=== PATIENT | male | born 1975 | race Two or more races ===

== ENCOUNTER 2022-09-10 21:32 | Emergency (ER) | payer SELFPAY ==
[~2022-09-10] VITALS: Ht 180.3 cm; Wt 106.5 kg
[2022-09-11] MEDS ORDERED: IBUP-2029 MT (02:27)
[2022-09-11] MEDS ORDERED: MUPI1OIN4 TP (02:27)
[2022-09-11 02:35] VITALS: BP 167/114
== END 2022-09-11 02:37 | disposition home or self-care (01) ==
LOC: ER 21:46
DX: D17.9 Benign lipomatous neoplasm, unspecified (principal)
CPT/HCPCS: 99282

== ENCOUNTER 2022-10-19 13:09 | Emergency (ER) | payer MEDICAID ==
[~2022-10-19] VITALS: Ht 170.2 cm; Wt 80.0 kg
[~2022-10-19 13:09] MED LIST: IBUP-2029 MT; MUPI1OIN4 TP
[2022-10-19 13:20] VITALS: BP 156/99; TEMP 98.6
[2022-10-19] MEDS ORDERED: ALBUTEROL (0.083%) 2.5MG/3ML NEB HHN ONE (17:00)
[2022-10-19] MEDS ORDERED: ALBU6.7H3 INH (17:30)
[2022-10-19] MEDS ORDERED: P50 MT (17:30)
[2022-10-19 17:40] VITALS: PULSE 92; RESP 20; O2SAT 92
== END 2022-10-19 19:01 | disposition home or self-care (01) ==
LOC: ER 13:09
DX: J45.909 Unspecified asthma, uncomplicated (principal)
CPT/HCPCS: 94640; 99283; Z7610 ×3; 94664

== ENCOUNTER 2022-12-21 23:22 | Emergency (ER) | payer MEDICAID ==
[~2022-12-21] VITALS: Ht 170.2 cm; Wt 92.5 kg
[~2022-12-21 23:22] MED LIST changes: +ALBU6.7H3 INH; +P50 MT
[2022-12-21 23:31] VITALS: BP 153/98
[2022-12-21] MEDS ORDERED: PREDNISONE 20MG TABLET PO STA (23:34)
[2022-12-21] MEDS ORDERED: IPRATROPIUM BROMIDE (0.02%) 0.5MG/2.5ML NEB HHN STA (23:34)
[2022-12-21] MEDS ORDERED: ALBUTEROL (0.083%) 2.5MG/3ML NEB HHN STA (23:34)
[2022-12-22] MEDS ORDERED: IPRATROPIUM BROMIDE (0.02%) 0.5MG/2.5ML NEB HHN NR (01:00)
[2022-12-22] MEDS ORDERED: ALBUTEROL (0.083%) 2.5MG/3ML NEB HHN NR (01:00)
[2022-12-22 01:06] VITALS: PULSE 97; RESP 18; O2SAT 97
[2022-12-22] MEDS ORDERED: ALBU6.7H3 INH (01:15)
[2022-12-22] MEDS ORDERED: P20 MT (01:15)
[2022-12-22 01:41] VITALS: PULSE 97; RESP 18; TEMP 97.8
== END 2022-12-22 01:43 | disposition home or self-care (01) ==
LOC: ER 12-22 00:53
DX: J45.901 Unspecified asthma with (acute) exacerbation (principal)
CPT/HCPCS: 94640; 99283; Z7610 ×3; J7512

== ENCOUNTER 2023-04-17 14:03 | Emergency (ER) | payer MEDICAID ==
[~2023-04-17] VITALS: Ht 177.8 cm; Wt 91.0 kg
[~2023-04-17 14:03] MED LIST changes: +P20 MT
[2023-04-17 14:16] VITALS: BP 165/100; PULSE 102; RESP 16; TEMP 98.7; O2SAT 97
[2023-04-17] MEDS ORDERED: SULF1TAB48 MT (20:21)
[2023-04-17] MEDS ORDERED: IBUP-1525 MT (20:21)
[2023-04-17] MEDS ORDERED: TOPUD MT (20:21)
[2023-04-17] MEDS ORDERED: LIDOCAINE HCL 1% 20ML VIAL (Pyxis) INJ INFIL ONE (20:30)
[2023-04-17] MEDS ORDERED: TETANUS, DIPHTHERIA, PERTUSSIS VAC/PF 0.5ML (>10YR OLD) IM ONE (20:30)
== END 2023-04-17 21:13 | disposition home or self-care (01) ==
LOC: ER 14:03
DX: L03.113 Cellulitis of right upper limb (principal)
CPT/HCPCS: 73130; 90715; 10060; 90471; 99283; Z7610 ×6

== ENCOUNTER 2023-04-21 01:47 | Emergency (ER) | payer MEDICAID ==
[~2023-04-21] VITALS: Ht 177.8 cm; Wt 95.0 kg
[~2023-04-21 01:47] MED LIST changes: +IBUP-1525 MT; +SULF1TAB48 MT; +TOPUD MT
[2023-04-21 02:29] VITALS: BP 124/84; PULSE 116; RESP 14; TEMP 99.1; O2SAT 100
[2023-04-21] MEDS ORDERED: ALBU6.7H15 INH (03:20)
== END 2023-04-21 04:25 | disposition home or self-care (01) ==
LOC: ER 02:15
DX: L03.011 Cellulitis of right finger (principal); J45.909 Unspecified asthma, uncomplicated; Z76.0 Encounter for issue of repeat prescription; Z79.899 Other long term (current) drug therapy
CPT/HCPCS: 99283

== ENCOUNTER 2024-11-21 06:00 | Emergency (ER) | payer SELFPAY ==
[~2024-11-21] VITALS: Ht 175.3 cm; Wt 91.0 kg
[~2024-11-21 06:00] MED LIST changes: +ALBU6.7H15 INH
[2024-11-21] MEDS: PREDNISONE 20MG TABLET PO ONE (07:05)
[2024-11-21] MEDS: IPRATROPIUM BROMIDE (0.02%) 0.5MG/2.5ML NEB HHN SCH (08:26)
[2024-11-21 08:27] VITALS: PULSE 84; RESP 18; O2SAT 94
[2024-11-21] MEDS: ALBUTEROL (0.083%) 2.5MG/3ML NEB HHN SCH (08:27)
[2024-11-21] MEDS ORDERED: P50 PO (08:43)
[2024-11-21] MEDS ORDERED: ALBU90AE INH (08:43)
[2024-11-21 08:46] VITALS: PULSE 82; RESP 15; O2SAT 99
[2024-11-21 09:06] VITALS: PULSE 85; RESP 16; O2SAT 99
[2024-11-21 09:26] VITALS: BP 155/96; PULSE 82; RESP 16; TEMP 36.7; O2SAT 100
== END 2024-11-21 09:27 | disposition home or self-care (01) ==
LOC: ER 06:00
DX: J45.901 Unspecified asthma with (acute) exacerbation (principal); Z79.899 Other long term (current) drug therapy
CPT/HCPCS: 94640; 93005; 99285; J7512; Z7610 ×3; 94070; 94664